=== PATIENT | female | born 1995 | race Two or more races ===

== ENCOUNTER → 2016-08-13 | Outpatient (CLI) | payer OTHER ==
[~2016-08-13] MED LIST: AMOXICILLIN500 MG PO; APAP/CODEINE EL15 ML PO; NAPROSYN500 MG PO; OMNICEF 300MG300 MG PO; TRINESSA TABLE1 EACH PO
[2016-08-13 12:23] LABS: HEMATOCRIT 37.1 % (33.0-46.0); HEMOGLOBIN 11.2 g/dL (11.0-15.0); MCH 23.6 pg (27.0-34.0); MCHC 30.2 gm/dL (32.0-36.5); MCV 78.3 fl (83.0-98.0); MPV 10.1 fl (9.4-12.4); PLATELET COUNT 344 K/uL (150-450); RBC 4.74 M/uL (3.50-5.00); RDW-CV 13.2 % (11.9-14.6); WBC 5.7 K/uL (4.0-11.0)
[2016-08-13 12:51] LABS: ABSOLUTE NEUTROPHIL CT (ANC) 3.9 K/uL (1.8-7.8); LYMPHOCYTE # 1.5 K/uL (0.8-4.0); LYMPHOCYTE % 27 %; MONOCYTE # 0.2 K/uL (0.0-1.0); SEGMENTED NEUTROPHIL # 3.9 K/uL (1.8-7.8); SEGMENTED NEUTROPHIL % 69 %
== END | disposition disaster alternative care site (69) ==
LOC: LELM 11:59
PROVIDERS: Family Medicine
DX: J01.90 Acute sinusitis, unspecified (principal)

== ENCOUNTER 2017-01-06 11:52 | Observation (INO) | payer OTHER ==
[~2017-01-06] VITALS: Ht 157.5 cm; Wt 55.0 kg
--- NOTE | ~2017-01-06 | DS ---
PATIENT'S NAME: [facility] AGE: 21 Y [address] ROOM: [id number] [place], [place] [id number] [place] [facility] [place]: 01/06/2017 Discharge Summary DISCHARGE DATE: 01/07/2017 FAMILY PHYSICIAN: Jim Nino MD ATTENDING PHYSICIAN: Jim Nino FINAL DIAGNOSES: 1. Tonsillitis/pharyngitis, acute. 2. Dehydration, mild, resolved. HOSPITAL COURSE: This patient was admitted from my office with severe sore throat. She has been unable eat or drink fluids in the preceding 24 hours prior to coming to my office. She was placed in the hospital, given IV fluids which she tolerated well. She was given IV antibiotics, Rocephin, and IV steroids without apparent consequence. She has been on amoxicillin as an outpatient prior to coming in, we held that. Here, her CBC and Chem panel were normal. Her 10-minute strep test was negative. Her backup strep test is pending. Her mono test was negative. Her chest x-ray is negative. PHYSICAL EXAMINATION: GENERAL: On the morning of dismissal, when I looked at her, she is alert, she is afebrile. VITAL SIGNS: Her blood pressure is 120/70, her O2 sats are normal on room air. HEENT: Her nose is clear. The throat is a little bit red. The airway is patent. NECK: Anterior adenopathy that is unchanged from admission. LUNGS: Clear. ABDOMEN: She has no organomegaly on belly exam. I discussed with her and her mother she can go home later today. She is dismissed from the hospital today to the care of her mother. She goes out on the med list shown including Omnicef 300 mg twice a day for 5 days. She is to see me back in the office in 1 week. She should be seen earlier if she has nausea, vomiting, fever, or chills; and she and her mother understand. JIM NINO MD HYDRAULIC MINER/modl PATIENT'S NAME: AN [facility] AGE: 21 Y [address] ROOM: [place] [id number] [place] [facility] [place]: 01/06/2017 Discharge Summary DISCHARGE DATE: 01/07/2017 FAMILY PHYSICIAN: Jim Nino MD ATTENDING PHYSICIAN: Jim Nino /[id number] d: 01/07/17 1857 t: 01/26/17 1731, DISCHARGE SUMMARY
[2017-01-06] MEDS ORDERED: NAPROSYN500 MG PO (12:35)
[2017-01-06] MEDS ORDERED: AMOXICILLIN500 MG PO (12:35)
[2017-01-06] MEDS ORDERED: TRINESSA TABLE1 EACH PO (12:36)
--- NOTE | 2017-01-06 13:08 | NUR ---
ADMIT: Pt. and mother completed health history. 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 Pt. has eczema, denies other skin issues. Difficulty waking from anesthesia along with nausea/vomiting. Denies home medications other than control. Oriented to floor, explained sleep hygiene items, menu, TV, and call light. No questions or concerns. Reported to primary nurse, Pam.
--- NOTE | 2017-01-06 13:32 | NUR ---
Significant Event: Admitted for dehydration and severe sore throat. Patient got sick tuesday night and has been on oral antibiotics since tuesday with no improvement. C/o headache, body aches, ear fullness, sore throat and having a hard time swallowing. Alert and oriented. Ambulates independently. Tachycardic. HR 120's-130's and regular. EKG ordered. IV to L) wrist. NS at 125mls/hr. Diet as tolerated. Will be on IV Rocephin qday and have 3 doses of Solumedrol. Blood cultures x2. Need UA. Does have Tylenol PRN pain control. Temp on admission 99.8. Patient sleeping comfortably in bed with mother at bedside now. Follow up:
[2017-01-06 14:26] LABS: BASOPHIL % 0.3 %; HEMATOCRIT 34.2 % (33.0-46.0); HEMOGLOBIN 10.3 g/dL (11.0-15.0); IMMATURE GRANULOCYTE % 0.3 %; LYMPHOCYTE % 13.1 %; MCHC 30.1 gm/dL (32.0-36.5); MCV 66.5 fl (83.0-98.0); MONOCYTE # 0.4 K/uL (0.0-1.0); MPV 10.2 fl (9.4-12.4); NEUTROPHIL # (ANC) 6.2 K/uL (1.8-7.8); NEUTROPHIL % 81.3 %; NRBC % 0 /100WBC (0-0.00); PLATELET COUNT 344 K/uL (150-450); RBC 5.14 M/uL (3.50-5.00); RDW-CV 19.7 % (11.9-14.6); WBC 7.6 K/uL (4.0-11.0)
[2017-01-06 14:46] LABS: ALBUMIN 3.9 gm/dL (3.5-5.0); ANION GAP 12.6 (10.0-19.0); CALCIUM 8.6 mg/dL (8.5-10.5); CREATININE 0.8 mg/dL (0.5-1.1); POTASSIUM 3.6 mMol/L (3.7-5.1); TOTAL BILIRUBIN 0.2 mg/dL (0.0-1.5); TOTAL PROTEIN 8.2 g/dL (6.0-8.4)
--- NOTE | 2017-01-06 17:42 | NUR ---
D: PATIENT VITAL SIGNS STABLE PATIENT LOW GRADE TEMP 100.3 THIS AFTERNOON. DID TALK PATIENT INTO TAKING SOME TYLENOL THIS AFTERNOON AT 1515. PATIENT INITIAL DOSED ON IV SOLUMEDROL, WILL HAVE ANOTHER DOSE OF ROCEPHIN THIS EVENING. IV INFUSING WITHOUT DIFFICULTY.
[2017-01-06 20:31] LABS: BILIRUBIN URINE NEGATIVE (NEGATIVE); BLOOD URINE NEGATIVE /UL (NEGATIVE); COLOR URINE YELLOW (YELLOW); GLUCOSE URINE NEGATIVE (NEGATIVE); KETONE URINE NEGATIVE (NEGATIVE); LEUKOCYTES URINE 25 /UL (NEGATIVE); NITRITE URINE NEGATIVE (NEGATIVE); PROTEIN URINE 30 mg/dL (NEGATIVE); SPEC GRAVITY URINE 1.015 (1.003-1.035); TURBIDITY URINE 4+ (CLEAR); UROBILINOGEN URINE NORMAL (NORMAL)
[2017-01-06 20:48] LABS: RBC URINE NEGATIVE #/HPF (NEGATIVE); WBC URINE 0-2 #/HPF (NEGATIVE)
[2017-01-06 20:50] LABS: AMORPHOUS URINE 3+ (NEGATIVE); BACTERIA URINE RARE (NEGATIVE); YEAST URINE RARE (NEGATIVE)
--- NOTE | 2017-01-07 04:31 | NUR ---
Significant Event: AAOX3. REG DIET. PIV TO LAC SL. ACTIVITY DID NOT OCCUR DURING SHIFT. PT CONSISTENTLY STATED HE WAS IN PAIN, IN AN AGGITATED STATE THROUGHOUT SHIFT. UNREALISTIC IDEATION OF BEING COMPLETLY PAIN FREE. PT WAS NOT HAPPY WITH ONLY TYLENOL FOR PAIN CONTROL. NOTIFIED: N/O GIOVANNY 5MG PO Q6 PRN, ADMIN X1, LAST AT 0330. PT WAS ASKED SEVERAL TIMES IF HE HAS HX OF ANXIETY, DENIED EVERY TIME. PT WAS COUNTING THE MINUTES/SECONDS OF WHEN HE TOOK HIS PAIN MEDICATION. RIGHT AT THE HOUR LORI WOULD INFORM NURSE IF PAIN WAS NOT COMPLETLY GONE. PAIN EDUCATION GIVEN TO PT SEVERAL TIMES THROUGHOUT SHIFT. RECEIVED IN REPORT FROM ER HE WAS GIVEN EDUCATION ON PAIN CONTROL WELL. PT WAS VERY RESTLESS FOR MOST OF SHIFT, HEATING PAD PLACED UNDER PT'S BACK TO AIDE WITH PAIN CONTROL. REPOSITIONED PT SEVERAL TIMES THROUGHOUT SHIFT. SANDWICH AND CRACKERS GIVEN TO PT, CONSUMED 100%. USES URINAL AT BEDSIDE. Follow up:
--- NOTE | 2017-01-07 04:47 | NUR ---
Significant Event: PIV TO L)WRIST NS IFUSING AT 125ML/HR. APAP WITH CODIENE ADMINISTERED LAST AT 2328 FOR 02/03. PT ATTEMPTED TO EAT SOFT FOODS LAST NIGHT WITHOUT SUCCESS. PREFERRED VANILLA PUDDIN/ICE CREAM. WAS ABLE TO CONVERSE/LAUGH WITH FAMILY, EDUCATED PT ON NEEDING TO REST THROAT. Follow up: PAIN
[2017-01-07] MEDS ORDERED: APAP/CODEINE EL15 ML PO (09:29)
[2017-01-07] MEDS ORDERED: OMNICEF 300MG300 MG PO (09:30)
--- NOTE | 2017-01-07 13:15 | NUR ---
DISCHARGE: Pt. and mother were educated on sore throat, omniceff, tyl/codeine elixir. No questions or concerns, verbalized understanding of teaching. IV removed by primary RN. Left with all belongings and prescriptions. Taken to front door by aide and driven home by mother.
== END 2017-01-07 13:15 | disposition disaster alternative care site (69) ==
LOC: GMSU 11:52 → EDSTATUS 12:00 → GMSU 01-07 13:15
PROVIDERS: ADMIT Family Medicine
DX: J02.8 Acute pharyngitis due to other specified organisms (principal); E86.0 Dehydration
CPT/HCPCS: J0696; J2001; J2920; J7030; J7040